=== PATIENT | female | born 1965 | race Caucasian/White ===

== ENCOUNTER 2017-10-22 17:02 | Outpatient (CLI) ==
--- NOTE | 2017-10-23 06:03 | DI ---
EXAM: Three views of the left hand HISTORY: Left hand pain and concern for rheumatoid arthritis. COMPARISON: Right hand x-rays same day FINDINGS: There is mild narrowing of the DIP joints. PIP joints are unremarkable. The MCP joints ar e normal. There is minimal narrowing of the CMC joint. There is narrowing of the radiocarpal joint. There is no lytic or blastic lesion. No definitive erosions are identified. IMPRESSION: Mild scattered areas of joint space narrowing with no definitive erosion or significant osteophyte formation.
--- NOTE | 2017-10-23 06:05 | DI ---
EXAM: Three views of the right hand HISTORY: Concern for rheumatoid arthritis. COMPARISON: Same day left hand x-rays FINDINGS: There is mild narrowing of the DIP joints of the fifth digit PIP joint. The MCP joints are normal. There is mild narrowing of the first CMC joint in the radiocarpal joint. No definitive ero silver is identified. There is no significant osteophyte formation present. The soft tissues are unre markable. IMPRESSION: Scattered areas of joint space narrowing with no definitive erosion or significant osteo phyte formation.
== END 2017-10-22 17:03 | disposition home or self-care (01) ==
LOC: RAD 17:02
PROVIDERS: ATTEND Internal Medicine Rheumatology
DX: M25.50 Pain in unspecified joint (principal)